=== PATIENT | female | born 1985 | race African-American/Black ===

== ENCOUNTER 2017-08-19 15:09 | Emergency (ER) | payer MEDICAID ==
[~2017-08-19] VITALS: Ht 167.6 cm; Wt 59.0 kg
[2017-08-19 15:21] VITALS: BP 126/91
== END 2017-08-19 21:15 | disposition left against medical advice (07) ==
LOC: ER 15:22
DX: Z53.21 Procedure and treatment not carried out due to patient leaving prior to being seen by health care provider (principal)